=== PATIENT | female | born 1980 | race Native Hawaiian/Other Pacific Islander ===

== ENCOUNTER 2016-11-14 00:23 | Emergency (ER) | payer OTHER ==
[~2016-11-14] VITALS: Ht 165.1 cm; Wt 88.5 kg
[~2016-11-14 00:23] MED LIST: ACET-655 PO; CETI10TA PO; FLEXERIL5 MG PO; NAPROSYN500 MG OR; RANITIDINE 150150 MG PO
[2016-11-14 01:30] VITALS: BP 131/82; TEMP 99.1
== END 2016-11-14 01:34 | disposition home or self-care (01) ==
LOC: ED 00:23
DX: J11.1 Influenza due to unidentified influenza virus with other respiratory manifestations (principal)
CPT/HCPCS: 87804; 99282

== ENCOUNTER 2017-05-17 22:55 | Emergency (ER) | payer OTHER ==
[~2017-05-17] VITALS: Ht 165.1 cm; Wt 110.2 kg
[2017-05-18 00:07] VITALS: BP 167/78; TEMP 98
[2017-05-18 01:10] LABS: PLATELET COUNT 204 K/uL (152-353)
[2017-05-18 01:21] LABS: POTASSIUM 3.6 mmol/L (3.6-5.2)
== END 2017-05-18 02:16 | disposition home or self-care (01) ==
LOC: ED 22:55
DX: M10.9 Gout, unspecified (principal); N20.1 Calculus of ureter; N23 Unspecified renal colic
CPT/HCPCS: 80053; 81000; 85027; 96360; 96375; 96376; 99284; J1885; J2550